=== PATIENT | female | born 2000 | race Two or more races ===

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

== ENCOUNTER 2019-05-09 09:25 | Emergency (ER) | payer MEDICAID | END 2019-05-09 11:00 | disposition home or self-care (01) ==

== ENCOUNTER 2019-05-19 01:55 | Emergency (ER) | payer MEDICAID | END 2019-05-19 07:06 | disposition home or self-care (01) ==